=== PATIENT | female | born 1985 | race Caucasian/White ===

== ENCOUNTER → 2019-12-08 | Outpatient (CLI) | payer OTHER ==
[~2019-12-08] MED LIST: ALPR0.25 PO; ALPR0.5T3 PO; AMIT25TA PO; AMIT50TA PO; AMPH1CAP16 PO; FLUC150T PO; GABA800T4 PO; LATU20TA PO; LATU40TA PO; METR-265 PO; MIRT1TAB15 PO; PRAZ1CAP PO; QUET1TAB7 PO
== END ==
LOC: M LABSMTC 10:05
PROVIDERS: ATTEND Family Medicine
DX: Z03.818 Encounter for observation for suspected exposure to other biological agents ruled out (principal); Z11.59 Encounter for screening for other viral diseases
CPT/HCPCS: C9803; U0003

== ENCOUNTER → 2019-12-16 | Outpatient (REF) | payer OTHER ==
[2019-12-16 21:58] LABS: APPEARANCE, URINE HAZY (CLEAR); BACTERIA, URINE AUTO NEGATIVE (NEGATIVE); BILIRUBIN, URINE AUTO NEGATIVE (NEGATIVE); BLOOD, URINE BLOOD NEGATIVE (NEGATIVE); COLOR, URINE YELLOW (YELLOW); GLUCOSE, URINE (UA) AUTO NEGATIVE (NEGATIVE); KETONE, URINE AUTO NEGATIVE (NEGATIVE); LEUKOCYTE ESTERASE, URINE AUTO NEGATIVE (NEGATIVE); MUCUS, URINE SMALL (NEGATIVE); NITRITE, URINE AUTO NEGATIVE (NEGATIVE); PROTEIN, URINE AUTO NEGATIVE (NEGATIVE); RBC, URINE AUTO 1 /HPF (0-3); SPECIFIC GRAVITY URINE AUTO 1.023 (1.002-1.035); SQUAMOUS EPITHELIAL CELL UR AU 8 /HPF (0-6); WBC, URINE AUTO 0 /HPF (0-3)
[2019-12-16 23:27] LABS: CHLAMYDIA DNA AMPLIFICATION NEGATIVE (NEGATIVE); GC DNA AMPLIFICATION NEGATIVE (NEGATIVE)
== END ==
LOC: M LAB REF 21:13
PROVIDERS: ATTEND Physician Assistant
DX: N39.0 Urinary tract infection, site not specified (principal); Z11.3 Encounter for screening for infections with a predominantly sexual mode of transmission

== ENCOUNTER 2019-12-20 12:56 | Emergency (ER) | payer OTHER ==
[~2019-12-20] VITALS: Ht 152.4 cm; Wt 61.9 kg
[2019-12-20] MEDS ORDERED: ALPR0.25 PO (13:20)
[2019-12-20] MEDS ORDERED: QUET1TAB7 PO (13:20)
[2019-12-20] MEDS ORDERED: FLUC150T PO (13:20)
[2019-12-20] MEDS ORDERED: AMPH1CAP16 PO (13:20)
[2019-12-20] MEDS ORDERED: METR-265 PO (13:20)
[2019-12-20] MEDS ORDERED: AMIT50TA PO (13:20)
[2019-12-20 14:00] LABS: BASO # 0.1 10^3/uL (0.0-0.2); BASO % 0.7 % (0.0-1.0); EOS # 0.1 10^3/uL (0.0-0.5); EOS % 0.7 % (0.0-3.0); HEMATOCRIT 45.2 % (36.0-47.0); HEMOGLOBIN 15.1 g/dl (12.0-15.5); LYMPH # 1.7 10^3/uL (1.5-5.0); LYMPH % 23.3 % (24.0-44.0); MEAN CORPUSCULAR HEMOGLOBIN 28.5 pg (27.0-33.0); MEAN CORPUSCULAR HGB CONC 33.4 g/dl (32.0-36.5); MEAN CORPUSCULAR VOLUME 85.3 fl (80.0-96.0); MONO # 0.4 10^3/uL (0.0-0.8); MONO % 5.2 % (0.0-5.0); NEUTROPHILS # 5.1 10^3/uL (1.5-8.5); NEUTROPHILS % 69.7 % (36.0-66.0); PLATELET COUNT, AUTOMATED 373 10^3/uL (150-450); WHITE BLOOD COUNT 7.4 10^3/uL (4.0-10.0)
[2019-12-20] MEDS ORDERED: NS 1,000 ML IV ONE (14:00)
[2019-12-20] MEDS ORDERED: METOCLOPRAMIDE INJ 10MG/2ML VIAL (J2765 PER 1) IV ONE (14:00)
[2019-12-20 14:23] LABS: ALBUMIN 4.2 GM/DL (3.2-5.2); ALT/SGPT 38 U/L (12-78); BILIRUBIN,DIRECT 0.2 MG/DL (0.0-0.2); BILIRUBIN,TOTAL 0.5 MG/DL (0.2-1.0); BLOOD UREA NITROGEN 22 MG/DL (7-18); CARBON DIOXIDE LEVEL 24 MEQ/L (21-32); CHLORIDE LEVEL 108 MEQ/L (98-107); GLOMERULAR FILTRATION RATE > 60.0 (>60); GLUCOSE, FASTING 94 MG/DL (70-100); MAGNESIUM LEVEL 2.1 MG/DL (1.8-2.4); PHOSPHORUS LEVEL 3.7 MG/DL (2.5-4.9); POTASSIUM SERUM 4.1 MEQ/L (3.5-5.1); SODIUM LEVEL 138 MEQ/L (136-145); TOTAL PROTEIN 7.6 GM/DL (6.4-8.2)
[2019-12-20 14:32] VITALS: BP 116/62
--- NOTE | 2019-12-20 21:27 | ECGEPIP ---
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
--- NOTE | 2019-12-20 23:29 | REP ---
CHEST, TWO VIEWS: There is no evidence of acute infiltrate. No pleural effusion is seen. The heart is normal in size. The mediastinal silhouette is unremarkable. The visualized osseous structures are intact. IMPRESSION: No acute pulmonary disease. Electronically Signed by Devon Fowler MD 12/22/2019 09:11 A
--- NOTE | 2019-12-20 23:51 | REP ---
CT BRAIN WITHOUT CONTRAST: REASON: Seizure. PRIORS: None. TECHNIQUE: 4.5 mm contiguous transaxial sections were obtained from the skull base to the cerebral convexities with thin cuts through the posterior fossa without the administration of intravenous contrast. FINDINGS: The ventricles and sulci are consistent with the patient's age. There are no extra-axial fluid collections. There is no mass effect. The deep cerebral white matter is consistent with the patient's age. The orbital and petrous structures, cerebellopontine angles, and posterior fossa are unremarkable. The sella turcica, cavernous, and paracavernous structures are essentially unremarkable. The visualized portions of the paranasal sinuses and mastoid air cells are clear. Images of the skull base show no gross abnormality. IMPRESSION: Essentially unremarkable CT examination of the brain. Electronically Signed by Vj Prescott DO 12/21/2019 09:27 A
== END 2019-12-20 14:45 | disposition left against medical advice (07) ==
LOC: M ED 12:56 → EDBD 12:56 → M ED 14:45
DX: R00.0 Tachycardia, unspecified (principal); I45.19 Other right bundle-branch block; Z53.21 Procedure and treatment not carried out due to patient leaving prior to being seen by health care provider; G40.909 Epilepsy, unspecified, not intractable, without status epilepticus; Z88.1 Allergy status to other antibiotic agents
CPT/HCPCS: 70450; 71046; 80048; 80076; 83735; 84100; 85025; 93005; 94760; 96374; 99284; J2765

== ENCOUNTER 2020-03-24 21:42 | Inpatient (IN) | payer OTHER ==
[~2020-03-24] VITALS: Ht 154.9 cm; Wt 69.6 kg
[~2020-03-24 21:42] MED LIST changes: -ALPR0.5T3 PO; -AMIT25TA PO; -GABA800T4 PO; -LATU20TA PO; -LATU40TA PO; -MIRT1TAB15 PO; -PRAZ1CAP PO
[2020-03-24] MEDS ORDERED: LATU40TA PO (22:02)
[2020-03-24] MEDS ORDERED: MIRT1TAB15 PO (22:02)
[2020-03-24] MEDS ORDERED: ALPR0.5T3 PO (22:02)
[2020-03-24 22:34] LABS: HEMATOCRIT 40.7 % (36.0-47.0); HEMOGLOBIN 13.3 g/dl (12.0-15.5); MEAN CORPUSCULAR HEMOGLOBIN 27.9 pg (27.0-33.0); MEAN CORPUSCULAR HGB CONC 32.7 g/dl (32.0-36.5); MEAN CORPUSCULAR VOLUME 85.5 fl (80.0-96.0); PLATELET COUNT, AUTOMATED 339 10^3/uL (150-450); RED BLOOD COUNT 4.76 10^6/uL (4.00-5.40); WHITE BLOOD COUNT 6.7 10^3/uL (4.0-10.0)
[2020-03-24 22:58] LABS: AMPHETAMINES LEVEL URINE POSITIVE (NEGATIVE); BARBITURATES URINE NEGATIVE (NEGATIVE); BENZODIAZEPINES URINE POSITIVE (NEGATIVE); CANNABINOIDS URINE NEGATIVE (NEGATIVE); COCAINE METABOLITE URINE NEGATIVE (NEGATIVE); METHADONE URINE NEGATIVE (NEGATIVE); OPIATES URINE POSITIVE (NEGATIVE); PHENCYCLIDINE URINE NEGATIVE (NEGATIVE)
[2020-03-24 23:09] LABS: BLOOD UREA NITROGEN 11 MG/DL (7-18); CALCIUM LEVEL 8.4 MG/DL (8.5-10.1); CARBON DIOXIDE LEVEL 27 MEQ/L (21-32); CHLORIDE LEVEL 109 MEQ/L (98-107); GLOMERULAR FILTRATION RATE > 60.0 (>60); GLUCOSE, FASTING 93 MG/DL (70-100); POTASSIUM SERUM 3.8 MEQ/L (3.5-5.1); SODIUM LEVEL 142 MEQ/L (136-145)
[2020-03-24 23:10] LABS: ACETAMINOPHEN LEVEL < 2.0 UG/ML (10.0-30.0); ALBUMIN 3.3 GM/DL (3.2-5.2); ALT/SGPT 54 U/L (12-78); BILIRUBIN,DIRECT < 0.1 MG/DL (0.0-0.2); BILIRUBIN,TOTAL 0.2 MG/DL (0.2-1.0); ETHYL ALCOHOL (ETHANOL) < 0.003 % (0.000-0.010); SALICYLATE LEVEL < 1.7 MG/DL (5.0-30.0); THYROID STIMULATING HORMONE 0.574 uIU/ML (0.358-3.740); TOTAL PROTEIN 6.2 GM/DL (6.4-8.2)
[2020-03-25] MEDS ORDERED: MAALOX 30 ML SUSP *UDC PO PRN (00:45)
[2020-03-25] MEDS ORDERED: MOM 30ML SUSPENSION UDC PO PRN (00:45)
[2020-03-25] MEDS ORDERED: ACETAMINOPHEN TAB 650MG DOSE (2X325MG) PO PRN (00:45)
[2020-03-25] MEDS ORDERED: GABA800T4 PO (01:32)
[2020-03-25] MEDS ORDERED: ALPR0.5T3 PO (01:32)
[2020-03-25] MEDS ORDERED: PRAZ1CAP PO (01:32)
[2020-03-25] MEDS: GABAPENTIN 400 MG CAP PO SCH ×3 (16:00→21:51)
--- NOTE | 2020-03-25 17:05 | HPEPDOC ---
[facility] Medical History & Physical Date of Admission Mar 25, 2020 Date of Service: Mar 25, 2020 History and Physical CHIEF COMPLAINT: Suicide ideation HISTORY OF PRESENT ILLNESS: Patient is a 34-year-old female with seizures who is in the inpatient mental health unit for suicide ideation. Today when I saw her in the inpatient mental health unit, she was distraught and had the blankets over her face. 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 When I talked to her, she told me she had a history of seizures. Last seizure was about 3 weeks ago. She is vague about what happens during the seizure. She tells me that she was put on gabapentin as the other seizure medications have made her feel weird. Otherwise she denied any fever or chills, lightheadedness or dizziness, changes in vision, chest pain, dyspnea, abdominal pain, diarrhea, or dysuria. PAST MEDICAL HISTORY: 1. Seizures 2. Depression PAST SURGICAL HISTORY: 1. Appendectomy. 2. Cystectomy. SOCIAL HISTORY: Tobacco use: Current smoker. One pack per day. ETOH: Denies Illicit drug use: Denies FAMILY HISTORY: Denies any known medical history in parents. Denies that parents had history of heart disease, diabetes, or thyroid problems ALLERGIES: Please see below. REVIEW OF SYSTEMS: A 10 system review was performed and pertinent positives and negatives listed in HPI above HOME MEDICATIONS: Please see below. PHYSICAL EXAMINATION: VITAL SIGNS: Temperature 98.8, pulse 112, respiratory rate 20, blood pressure 135/87, pulse oximetry 100 % on room air. GENERAL: Emotional distress, high blankets over her face. HEENT: Sclera clear. NECK: Supple RESPIRATORY: Lungs clear to auscultation bilaterally, no rales, wheeze or rhonchi. CARDIOVASCULAR: Regular rhythm ABDOMEN: Soft, nontender, no guarding or rebound tenderness. Normal bowel sounds. MUSCLE SKELETAL: Muscle strength 5/5 in all extremities. PSYCHOLOGICAL: Anxious LABORATORY DATA: See below. ASSESSMENT AND PLAN: 1. Suicide ideation Being managed in the inpatient mental health unit 2. Anxiety Being managed in the inpatient mental health unit 3. Seizures Restart gabapentin Would recommend her following with an outpatient neurologist to help manage her seizure medications Thank you for allowing us to be part of the patient's care. We will sign off now. If there is any further questions or concerns, please do not hesitate to contact us Vital Signs Vital Signs Date Time Temp Pulse Resp B/P (MAP) Pulse Ox O2 Delivery O2 Flow Rate FiO2 03/24/20 21:48 98.8 112 20 135/87 100 Room Air Laboratory Data Labs 24H Laboratory Tests 2 03/24/20 22:18: Nucleated Red Blood Cells % (auto) 0.0, Anion Gap 6L, Glomerular Filtration Rate > 60.0, Calcium Level 8.4L, Total Bilirubin 0.2, Direct Bilirubin < 0.1, Aspartate Amino Transf (AST/SGOT) 49H, Alanine Aminotransferase (ALT/SGPT) 54, Alkaline Phosphatase 108, Total Protein 6.2L, Albumin 3.3, Albumin/Globulin Ratio 1.1L, Thyroid Stimulating Hormone (TSH) 0.574, Salicylates Level < 1.7L, Urine Opiates Screen POSITIVEH, Urine Methadone Screen NEGATIVE, Acetaminophen Level < 2.0L, Urine Barbiturates Screen NEGATIVE, Urine Phencyclidine Screen NEGATIVE, Urine Amphetamines Screen POSITIVEH, Urine Benzodiazepines Screen POSITIVEH, Urine Cocaine Metabolite Screen NEGATIVE, Urine Cannabinoids Screen NEGATIVE, Ethyl Alcohol Level < 0.003 CBC/BMP Laboratory Tests 03/24/20 22:18 Home Medications Scheduled Amitriptyline HCl (Amitriptyline HCl) 50 Mg Tablet, 50 MG PO QHS Dextroamphetamine/Amphetamine (Dextroamp-Amphet ER 20 mg Cap) 20 Mg Cap.er.24h, 1 TAB PO BID Gabapentin (Gabapentin) 800 Mg Tablet, 800 MG PO TID Lurasidone Hydrochloride (Latuda) 40 Mg Tablet, 40 MG PO DAILY Mirtazapine (Mirtazapine) 15 Mg Tab.rapdis, 15 MG PO QHS Prazosin Hcl (Prazosin HCl) 1 Mg Capsule, 1 MG PO QHS Quetiapine Fumarate (Quetiapine Fumarate) 25 Mg Tablet, 50 MG PO QHS Scheduled PRN Alprazolam (Alprazolam) 0.5 Mg Tablet, 0.5 MG PO TID PRN for ANXIETY/AGITATION Allergies Coded Allergies: ciprofloxacin (Verified Allergy, Intermediate, 12/20/19) A-FIB/CHADSVASC A-FIB History Current/History of A-Fib/PAF?: No ALICIA ROSALES DO Mar 25, 2020 17:05
[2020-03-25 18:07] VITALS: BP 93/52
[2020-03-25] MEDS: traZODone 50 MG TAB PO PRN (21:51)
[2020-03-26 06:36] VITALS: BP 110/57
[2020-03-26] MEDS ORDERED: INFLUENZA QUADRIVALENT PF VACCINE 0.5ML SYRINGE IM ONE (09:00)
[2020-03-26] MEDS: GABAPENTIN 400 MG CAP PO SCH ×3 (09:40→20:50)
[2020-03-26] MEDS: AMPHETAMINE/DEXTROAMPHETAMINE 5 MG *ER* CAPSULE (ADDERALL XR) PO SCH (15:10)
--- NOTE | 2020-03-26 15:25 | MHIPNPDOC ---
[facility] Progress Note Progress Note DATE OF SERVICE: 03/26/20 HISTORY: Patient is a 34 year old, Single, Employed, Domiciled Female who was brought in by police after her girlfriend had reported that she took an overdose. Patient reports in today's interview that she took two Xanax 0.5 mg because she states she was having trouble sleeping and having difficulty with schoolwork online. She states in today's interview that she made a joke that she "might as well take all of her medications." According to the ED reports she sent a voice message threatening to crash her or overdose on medications. "I didn't mean I would kill myself, I would admit myself if I needed to. I would bag my bags and go to [place] if I needed to be admitted." ED reports that she was possibly losing custody of her children. She had endorsed to the ED depressed, anxiety, racing thoughts, poor concentration, decreased energy, decreased appetite and poor sleep. 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 VITAL SIGNS: See below. NEW TEST RESULTS: CURRENT MEDICATIONS: See below. MENTAL STATUS EXAMINATION: Patient is a 34-year old Single, Employed, Domiciled female, who is awakened for the interview and is mildly drowsy. She appears her stated age. Dressed in hospital scrubs, hygiene and grooming is fair. Her eye contact is minimal, she is disengaged in the interview. She has some slower psychomotor changes. Speech: Is low tone, slow rate and impoverished Language skills are intact Thought processes including: linear and goal oriented Thought content: depression, minimizing suicidal ideation, is not observed with homicidal thoughts, withdrawn, isolative, guarded Abstract reasoning, and computation: . Description of associations: . Description of abnormal or psychotic thoughts: none noted. Judgment: poor to fair at times Insight: poor to fair at times Orientation: alert and oriented to person, place, time and situation Recent and remote memory: intact Attention span and concentration: good Language: expansive Fund of knowledge: average Mood: depressed, reportedly is labile at times Affect: flat DIAGNOSES: 1. Bipolar II Depression 2. Tobacco Use Disorder 3. History of Seizures ASSESSMENT: Patient continued to minimize her suicide attempts, stating "I was joking about taking my medications" She was tearful and impoverished and minimal in her responses. Wants to be discharged, reinforced that due to overdose that she must be held for at least 72 hours, to which she asked when she 72 hours was over and wants to be discharged on the morning of 03/28/20. Reinforced with patient that she will be held up to the 72 hours and not before, she remains very dismissive, guarded and disengaged in treatment. She would only sign LITO for Dr. Hinton to discuss only mediations and not anything about why she is hospitalized. Spoke to Dr. Hinton about titration of Amitriptyline and Seroquel. Case discussed with Dr. Agosto. MANAGEMENT PLAN: Patient will be continued on all home medications, with reduction of Amitriptyline and Seroquel. Due to patient's impulsivity and suicidal risk I am titrating patient off Amitriptyline and Seroquel due to multiple medications with sedative side effects. TIME SPENT: 20 minutes. Vital Signs Vital Signs Date Time Temp Pulse Resp B/P (MAP) Pulse Ox O2 Delivery O2 Flow Rate FiO2 03/26/20 06:36 98.0 73 14 110/57 (74) 98 Room Air Current Medications Current Medications Medications (Trade) Dose Ordered Sig/Katrin Route PRN Reason Start Time Stop Time Status Last Admin Dose Admin Acetaminophen (Tylenol Tab) 650 mg Q6HP PRN PO HEADACHE or DISCOMFORT 03/25/20 00:45 Al Hydrox/Mg Hydrox/Simethicone (Mylanta) 30 ml Q4HP PRN PO HEARTBURN/INDIGESTION 03/25/20 00:45 Gabapentin (Neurontin) 800 mg TID PO 03/25/20 16:00 03/26/20 09:40 Home Med (Med Rec Complete!) ASDIRECTED XX 03/25/20 01:45 03/25/20 01:34 DC Magnesium Hydroxide (Milk Of Magnesia) 30 ml DAILYPRN PRN PO CONSTIPATION 03/25/20 00:45 Trazodone HCl (Desyrel) 50 mg QHSP PRN PO INSOMNIA 03/25/20 00:45 03/25/20 21:51 Allergies Coded Allergies: ciprofloxacin (Verified Allergy, Intermediate, 12/20/19) REEBCA LITTLEJOHN SUSTAINABILITY PURCHASING AGENT Mar 26, 2020 13:47
[2020-03-26 16:06] VITALS: BP 100/58
[2020-03-26] MEDS: traZODone 50 MG TAB PO PRN (20:50)
[2020-03-26] MEDS: QUEtiapine FUMARATE 25 MG TAB PO SCH (20:50)
[2020-03-26] MEDS: MIRTAZAPINE 15 MG TAB PO SCH (20:50)
[2020-03-26] MEDS: AMITRIPTYLINE 25 MG TAB PO SCH (20:50)
[2020-03-27 06:30] VITALS: BP 120/62
[2020-03-27] MEDS ORDERED: LURASIDONE HCL 40 MG TAB (LATUDA) PO SCH (08:00)
[2020-03-27] MEDS: GABAPENTIN 400 MG CAP PO SCH ×3 (08:41→21:20)
[2020-03-27] MEDS: AMPHETAMINE/DEXTROAMPHETAMINE 5 MG *ER* CAPSULE (ADDERALL XR) PO SCH ×2 (08:41→14:08)
--- NOTE | 2020-03-27 14:12 | CR.PDOC ---
General Date of Consultation: Mar 27, 2020 Consultation Reason for consultation: possible glass/foreign object in foot Subjective: Patient seen and examined in examination room. Patient voiced no complaints. Notified by staff regarding earlier complaints of glass/foreign object in foot, which occurred prior to admission to [facility]. Objective: General: NAD, sitting comfortably in chair HEENT: NC/AT, EOMI Lungs: CTA B/L Heart: +S1S2, RRR Abd: soft, NT, +BS Ext: no edema A/P: 34 yo female admitted to [facility] for suicidal ideation, medicine consulted for further evaluation of possible glass foreign object in foot. #psych/SI - as per primary team - psychiatry #possible foreign object in foot - XR pending Vital Signs/I&O Vital Signs Date Time Temp Pulse Resp B/P (MAP) Pulse Ox O2 Delivery O2 Flow Rate FiO2 03/27/20 06:30 97.9 77 16 120/62 (81) 03/26/20 06:36 98 Room Air Allergies Coded Allergies: ciprofloxacin (Verified Allergy, Intermediate, 12/20/19) Home Medications Scheduled Amitriptyline HCl (Amitriptyline HCl) 50 Mg Tablet, 50 MG PO QHS, (Reported) Dextroamphetamine/Amphetamine (Dextroamp-Amphet ER 20 mg Cap) 20 Mg Cap.er.24h, 1 TAB PO BID, (Reported) Gabapentin (Gabapentin) 800 Mg Tablet, 800 MG PO TID, (Reported) Lurasidone Hydrochloride (Latuda) 40 Mg Tablet, 40 MG PO DAILY, (Reported) Mirtazapine (Mirtazapine) 15 Mg Tab.rapdis, 15 MG PO QHS, (Reported) Prazosin Hcl (Prazosin HCl) 1 Mg Capsule, 1 MG PO QHS, (Reported) Quetiapine Fumarate (Quetiapine Fumarate) 25 Mg Tablet, 50 MG PO QHS, (Reported) Scheduled PRN Alprazolam (Alprazolam) 0.5 Mg Tablet, 0.5 MG PO TID PRN for ANXIETY/AGITATION, (Reported) SHANNON COWAN MD Mar 27, 2020 14:12
--- NOTE | 2020-03-27 14:20 | MHHPEPDOC ---
General Date Of Admission: Mar 25, 2020 Legal Status: 9.39 Chief Complaint "I wanted to take a nap and so I took 2 Xanax so I could work on school." History of Present Illness HISTORY OF THE PRESENT ILLNESS: Patient is a 34 year old, Single, Employed, Domiciled Female who was brought in by police after her girlfriend had reported that she took an overdose. Patient reports in today's interview that she took two Xanax 0.5 mg because she states she was having trouble sleeping and having difficulty with schoolwork online. She states in today's interview that she made a joke that she "might as well take all of her medications." According to the ED reports she sent a voice message threatening to crash her or overdose on medications. "I didn't mean I would kill myself, I would admit myself if I needed to. I would bag my bags and go to [place] if I needed to be admitted." ED reports that she was possibly losing custody of her children. She had endorsed to the ED depressed, anxiety, racing thoughts, poor concent ration, decreased energy, decreased appetite and poor sleep. 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 It is reported that she and her girlfriend had a breakup. According to collateral patient's ex-girlfriend received a voice message with the patient endorsing that she was going to kill herself by overdosing on her medications. The Police were able to listen to the recording. According to the ED report, patient reported that she took Xanax and all of her sleeping medications (Seroquel, Remeron, and Prazosin) in order to sleep. Patient has numerous stressors 1) recent breakup with girlfriend, 2) possibility of losing custody of children, 3) new job at 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 Psychiatric Review of Systems Depression (2 or more weeks): depressed mood, anhedonia, insomnia/hypersomnia (poor sleep), feelings of excess/guilt, feelings of worthlesness, difficulty concentrating, suicidal thoughts, other (relationship problems) Areli (4 or more days of): denies Psychosis: denies PTSD: denies Anxiety: gen/non-specific anxiety, situational anxiety, stressor related anxiety Anxiety/ 6 months or more of: restlessness, keyed up, difficulty concentrating, irritability, personality cluster A,BC Past Psychiatric History Previous Psychiatric Diagnosis: Bipolar I Disorder, Depression, Anxiety, ADHD, Borderline Personality Disorder Previous Psychiatric Admissions: Previous hospitalization at [facility], [place], [place] Suicide Attempts: Age [age] years old Overdose. One this occasion she overdosed on Xanax and sleeping pills Psychiatric Follow-up: Dr. Hinton Psychiatric medications: Xanax, Seroquel, Remeron, Adderall, Prozosin, Amitriptyline, Latuda . Per ED reports: ADHD, alcohol use/abuse, anxiety, depression, self-harm, poor impulse control, self-harm, sleep disturbance, suicidal ideation/suicide attempt, trauma history Past Medical History Medical Problems PAST MEDICAL HISTORY: 1. Seizures 2. Depression PAST SURGICAL HISTORY: 1. Appendectomy. 2. Cystectomy. ALLERGIES: Ciprofloxacin Head Injury: No Seizures: Yes Hospitalizations: Yes Surgeries: Yes Family Medical/Psychiatric HX Medical Problems FAMILY HISTORY: Denies any known medical history in parents. Denies that parents had history of heart disease, diabetes, or thyroid problems Sister with depression Psychiatric Disorders: No Addiction: No Suicide Attemps/Completions: No Addiction History nicotine (one pack a day), alcohol, cocaine (last use 18 years old), ecstasy (last use at 20 yo), amphetamines (Rx for ADHD), opioids (6 years ago), heroin (6 years ago) Social History Childhood: born in [facility], to both parents, 4 younger sisters. Patient is the oldest. Both parents alive but Abuse/Trauma: yes Current Living Situation: Living with twin 12 years old son and daughter. Currently the daughter/linette are with their father. 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 Has court tomorrow. Marital: Single, and Mental Status Examination General Appearance: disheveled, appears stated age, hospital scubs/clothing Build: average Demeanor: mistrustful, withdrawn, guarded Eye Contact: avoidant Activity: anxious Behavior: withdrawn Speech: slow, impoverished Mood: depressed, irritable Mood "I was not depressed, I was joking" As she is crying after being told she will be hospitalized for 72 hours or longer Affect: flat, anxious Thought Process: logical/linear Thought Content (Delusions): none reported, denies SI, HI, AVH Thought Content (Other): guarded Thought Content (Aggressive): none reported Perception (Hallucinations): none reported Perception (Other): none reported Cognition (Impairment of): none reported Cognition(Intelligence Est.): average Oriented: Awake, Alert, Oriented times three Insight: poor Judgment: Poor Psychosis: Denies Diagnoses Bipolar I, Disorder, Recurrent, Depressed Tobacco Use Disorder ADHD Anxiety Disorder Borderline Personality Disorder A-FIB/CHADSVASC A-FIB History Current/History of A-Fib/PAF?: No Current PO Anticoag Therapy: No Assessment Patient is withdrawn, guarded and minimizing her suicide gesture/attempt. She states "I was joking and I only took 2 Xanax" she appears depressed, although reporting mild depression. States that she is worried about her job and nursing school. we will restart patient on all her home medications. Given that Amitriptyline can be very dangerous for someone this impulsive I am going to titrate her off this medication. Seroquel is also being titrated down. I spoke with Dr. Hinton about this discontinuation. Patient will be held for the full 72 hours and/or longer. She minimizes all of her actions and states she does not need to be hospitalized. Due to her level of impulsivity and recent added stressors we will observe and determine her discharge at the end of the 72 hours. Initial Treatment Plan 1. Patient was admitted on a [9.39] status. 2. Complete history was obtained. 3. With patients permission, family will be contacted and database will be expanded. 4. Patients medication regimen will be reviewed and changed accordingly. 5. Patient will be provided with protected environment. 6. Patient will be treated with individual, group, and milieu therapies. 7. Patient will receive supportive psych-education. 8. Discharge planning will commence immediately. 9. Outpatient follow-up treatment will be strongly recommended. 10. The initial treatment plan will focus initially on: * Depression. * Risk for suicide. ESTIMATED LENGTH OF STAY: [3-5 DAYS. TIME SPENT COUNSELING AND COORDINATING INITIAL CARE: 45 minutes. Vital Signs Vital Signs Date Time Temp Pulse Resp B/P (MAP) Pulse Ox O2 Delivery O2 Flow Rate FiO2 03/27/20 06:30 97.9 77 16 120/62 (81) 03/26/20 06:36 98 Room Air Medications Scheduled Amitriptyline HCl (Amitriptyline HCl) 50 Mg Tablet, 50 MG PO QHS, (Reported) Dextroamphetamine/Amphetamine (Dextroamp-Amphet ER 20 mg Cap) 20 Mg Cap.er.24h, 1 TAB PO BID, (Reported) Gabapentin (Gabapentin) 800 Mg Tablet, 800 MG PO TID, (Reported) Lurasidone Hydrochloride (Latuda) 40 Mg Tablet, 40 MG PO DAILY, (Reported) Mirtazapine (Mirtazapine) 15 Mg Tab.rapdis, 15 MG PO QHS, (Reported) Prazosin Hcl (Prazosin HCl) 1 Mg Capsule, 1 MG PO QHS, (Reported) Quetiapine Fumarate (Quetiapine Fumarate) 25 Mg Tablet, 50 MG PO QHS, (Reported) Scheduled PRN Alprazolam (Alprazolam) 0.5 Mg Tablet, 0.5 MG PO TID PRN for ANXIETY/AGITATION, (Reported) Allergies Coded Allergies: ciprofloxacin (Verified Allergy, Intermediate, 12/20/19) REBECA LITTLEJOHN NP Mar 27, 2020 13:39
[2020-03-27 16:41] VITALS: BP 134/82
--- NOTE | 2020-03-27 16:48 | MHIPNPDOC ---
[facility] Progress Note Progress Note DATE OF SERVICE: 03/27/20 HISTORY: Patient is a 34 year old, Single, Employed, Domiciled Female who was brought in by police after her girlfriend had reported that she took an overdose. Patient reports in today's interview that she took two Xanax 0.5 mg because she states she was having trouble sleeping and having difficulty with schoolwork online. She states in today's interview that she made a joke that she "might as well take all of her medications." According to the ED reports she sent a voice message threatening to crash her or overdose on medications. "I didn't mean I would kill myself, I would admit myself if I needed to. I would bag my bags and go to [place] if I needed to be admitted." ED reports that she was possibly losing custody of her children. She had endorsed to the ED depressed, anxiety, racing thoughts, poor concentration, decreased energy, decreased appetite and poor sleep. 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 VITAL SIGNS: See below. NEW TEST RESULTS: CURRENT MEDICATIONS: See below. MENTAL STATUS EXAMINATION: Patient is a 34-year old Single, Employed, Domiciled female, who is calm and cooperative in the interview. She denies SI. HI, depression and anxiety. States that she is upset with what happened to place her in the hospital. She appears her stated age, hygiene and grooming are fair. Eye contact is good. Speech: Is normal rate, tone and volume Language skills are intact Thought processes including: linear and goal oriented Thought content: mildly depressed, denies that she took an overdose. And reports that she is very upset with her friend because she states she has always self presented to the hospital when she has needed help or an admission to the hospital Abstract reasoning, and computation: fair Description of associations: none Description of abnormal or psychotic thoughts: none noted. Judgment: good Insight: good Orientation: alert and oriented to person, place, time and situation Recent and remote memory: intact Attention span and concentration: good Language: expansive Fund of knowledge: average Mood: mildly depressed, Affect: reactive DIAGNOSES: 1. Bipolar II Depression 2. Tobacco Use Disorder 3. History of Seizures ASSESSMENT: Patient continued to report that she did not take an overdose of her medications. She is seen out in the milieu and appears to be in brighter mood and affect. She smiled on approach and reports that she spent two days in the room because she had to process what had happened. She attended groups and during the interview, she appeared to be genuine and engaged. Patient reports concern about her children's whereabouts because is only allowed supervised visits due to his continued drug use. 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 She articulates well, describing how she decided to move her children to [place] in order to create a better life for herself. She states that she is happy with her current work schedule, feels like she is in a good place but admits that she at times sabotages herself when she is in conflict. MANAGEMENT PLAN: Patient will be continued on all home medications, with reduction of Amitriptyline and Seroquel. Latuda increased to 60 mg per patient's request, stating that she feels that her mood is still unstable. At this time, I feel that patient is stable and that she can be discharged tomorrow after I meet with her. TIME SPENT: 25 minutes. Vital Signs Vital Signs Date Time Temp Pulse Resp B/P (MAP) Pulse Ox O2 Delivery O2 Flow Rate FiO2 03/27/20 06:30 97.9 77 16 120/62 (81) 03/26/20 06:36 98 Room Air Current Medications Current Medications Medications (Trade) Dose Ordered Sig/Katrin Route PRN Reason Start Time Stop Time Status Last Admin Dose Admin Acetaminophen (Tylenol Tab) 650 mg Q6HP PRN PO HEADACHE or DISCOMFORT 03/25/20 00:45 Al Hydrox/Mg Hydrox/Simethicone (Mylanta) 30 ml Q4HP PRN PO HEARTBURN/INDIGESTION 03/25/20 00:45 Alprazolam (Xanax) 0.5 mg TID PRN PO Anxiety 03/26/20 14:00 Amitriptyline HCl (Elavil) 25 mg QHS PO 03/26/20 21:00 03/26/20 20:50 Amphetamine/ Dextroamphetamine (Adderall Xr) 20 mg BID@0800,1400 PO 03/26/20 14:00 10/13/20 14:08 Gabapentin (Neurontin) 800 mg TID PO 03/25/20 16:00 03/27/20 08:41 Home Med (Med Rec Complete!) ASDIRECTED XX 03/25/20 01:45 03/25/20 01:34 DC Lurasidone HCl (Latuda) 40 mg DAILY@08 PO 03/27/20 08:00 03/27/20 08:41 Magnesium Hydroxide (Milk Of Magnesia) 30 ml DAILYPRN PRN PO CONSTIPATION 03/25/20 00:45 Mirtazapine (Remeron) 15 mg QPM PO 03/26/20 21:00 03/26/20 20:50 Quetiapine Fumarate (SEROquel) 25 mg QHS PO 03/26/20 21:00 03/26/20 20:50 Trazodone HCl (Desyrel) 50 mg QHSP PRN PO INSOMNIA 03/25/20 00:45 03/26/20 20:50 Allergies Coded Allergies: ciprofloxacin (Verified Allergy, Intermediate, 12/20/19) REBECA LITTLEJOHN NP Mar 27, 2020 16:19
[2020-03-27] MEDS: AMITRIPTYLINE 25 MG TAB PO SCH (21:20)
[2020-03-27] MEDS: ALPRAZolam 0.5 MG TAB PO PRN (21:20)
[2020-03-27] MEDS: QUEtiapine FUMARATE 25 MG TAB PO SCH (21:20)
[2020-03-27] MEDS: MIRTAZAPINE 15 MG TAB PO SCH (21:20)
[2020-03-27] MEDS: traZODone 50 MG TAB PO PRN (22:48)
[2020-03-28 06:32] VITALS: BP 138/88
[2020-03-28] MEDS: AMPHETAMINE/DEXTROAMPHETAMINE 5 MG *ER* CAPSULE (ADDERALL XR) PO SCH (07:53)
[2020-03-28] MEDS: GABAPENTIN 400 MG CAP PO SCH (07:54)
[2020-03-28] MEDS ORDERED: LURASIDONE 20 MG TAB (LATUDA) PO SCH (08:00)
[2020-03-28] MEDS: ALPRAZolam 0.5 MG TAB PO PRN (09:44)
[2020-03-28] MEDS ORDERED: AMIT25TA PO (10:35)
[2020-03-28] MEDS ORDERED: LATU20TA PO (10:35)
--- NOTE | 2020-03-28 15:57 | MHDSPDOC ---
[facility] Discharge Summary Discharge Summary DATE OF ADMISSION: Mar 25, 2020 at 00:43 DATE OF DISCHARGE: Mar 28, 2020 at 12:25 DISCHARGE DIAGNOSES: 1. Bipolar II Depression 2. Tobacco Use Disorder 3. History of Seizures REASON FOR ADMISSION: Patient is a 34 year old, Single, Employed, Domiciled Female who was brought in by police after her girlfriend had reported that she took an overdose. Patient reports in today's interview that she took two Xanax 0.5 mg because she states she was having trouble sleeping and having difficulty with schoolwork online. She states in today's interview that she made a joke that she "might as well take all of her medications." According to the ED reports she sent a voice message threatening to crash her or overdose on medications. "I didn't mean I would kill myself, I would admit myself if I needed to. I would bag my bags and go to [place] if I needed to be admitted." ED reports that she was possibly losing custody of her children. She had endorsed to the ED depressed, anxiety, racing thoughts, poor concentration, decreased energy, decreased appetite and poor sleep. 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 CONSULTANTS INVOLVED: See Medical Consultation by Medical Providers TREATMENT AND PROGRESS ON THE UNIT : TREATMENT AND PROGRESS ON THE UNIT : Patient was admitted to the [facility] on a 9.39 legal status he was afforded the following treatment modalities: 1) Individual Therapy 2) Group Therapy 3) Medication Management 4) Milieu Therapy 5) Safe Environment HOSPITAL COURSE: Patient was restarted on all her home medications, with reduction of Amitriptyline and Seroquel. Latuda increased to 60 mg per patient's request, stating that she feels that her mood is still unstable. At this time, I feel that patient is stable for discharge. She was initially very withdrawn and guarded and stayed close to her room. She was at times very standoffish. By her 3rd day she was calm and cooperative and pleasant on the unit, social with peers and had a bright mood and affect DISCHARGE ASSESSMENT: Patient is doing well and is stable for discharge. She reports motivation to return to school and is future oriented, she denies suicidal ideation and reported no depression. MENTAL STATUS EXAMINATION ON DISCHARGE: Patient is a 34-year old Single, Employed, Domiciled female, who is calm and cooperative in the interview. She denies SI. HI, depression and anxiety. States that she is upset with what happened to place her in the hospital. She appears her stated age, hygiene and grooming are fair. Eye contact is good. Speech: Is normal rate, tone and volume Language skills are intact Thought processes including: linear and goal oriented Thought content: mildly depressed, denies that she took an overdose. And reports that she is very upset with her friend because she states she has always self presented to the hospital when she has needed help or an admission to the hospital Abstract reasoning, and computation: fair Description of associations: none Description of abnormal or psychotic thoughts: none noted. Judgment: good Insight: good Orientation: alert and oriented to person, place, time and situation Recent and remote memory: intact Attention span and concentration: good Language: expansive Fund of knowledge: average Mood: bright, euthymic Affect: reactive MEDICATIONS ON DISCHARGE: see Medication Reconciliation PLAN/FOLLOWUP ARRANGEMENTS: Following up with Lupe and Dr. Hinton The amount of time spent in the coordination of care for this patient was approximately 35 minutes. Vital Signs/I&Os Vital Signs Date Time Temp Pulse Resp B/P (MAP) Pulse Ox O2 Delivery O2 Flow Rate FiO2 03/28/20 06:32 97.6 107 16 138/88 (105) 03/26/20 06:36 98 Room Air Medications Scheduled Amitriptyline HCl (Amitriptyline HCl) 25 Mg Tablet, 25 MG PO QPM for depression, #2 Take 25 mg every other night Dextroamphetamine/Amphetamine (Dextroamp-Amphet ER 20 mg Cap) 20 Mg Cap.er.24h, 1 TAB PO BID, (Reported) Gabapentin (Gabapentin) 800 Mg Tablet, 800 MG PO TID, (Reported) Lurasidone Hydrochloride (Latuda) 20 Mg Tablet, 1 TAB PO DAILY for Mood Stabilizer, #7 Take Lurasidone 20 mg with 40 mg tablet for total of 60 mg Mirtazapine (Mirtazapine) 15 Mg Tab.rapdis, 15 MG PO QHS, (Reported) Quetiapine Fumarate (Quetiapine Fumarate) 25 Mg Tablet, 50 MG PO QHS, (Reported) Scheduled PRN Alprazolam (Alprazolam) 0.5 Mg Tablet, 0.5 MG PO TID PRN for ANXIETY/AGITATION, (Reported) Allergies Coded Allergies: ciprofloxacin (Verified Allergy, Intermediate, 12/20/19) REBECA LITTLEJOHN NP Mar 28, 2020 15:57
--- NOTE | 2020-03-30 13:37 | REP ---
RIGHT FOOT SERIES CLINICAL: Foreign body. TECHNIQUE: PA and lateral. FINDINGS: Osseous structures, joint spaces, and surrounding soft tissues appear normal. No acute fracture or dislocation. No subcutaneous emphysema. No obvious foreign body. IMPRESSION: Normal examination. No obvious foreign body. MTDD
== END 2020-03-28 12:25 | disposition home or self-care (01) | DRG 753 ==
LOC: M ED 21:42 → M ED INP 03-25 00:43 → M PSY 03-25 02:46
PROVIDERS: ADMIT Psychiatry & Neurology Psychiatry; ATTEND Psychiatry & Neurology Psychiatry
DX: F31.81 Bipolar II disorder (principal); R56.9 Unspecified convulsions; R45.851 Suicidal ideations; F17.200 Nicotine dependence, unspecified, uncomplicated; Z79.899 Other long term (current) drug therapy; Z88.8 Allergy status to other drugs, medicaments and biological substances; F41.9 Anxiety disorder, unspecified

== ENCOUNTER → 2020-04-19 | Outpatient (REF) | payer OTHER ==
[~2020-04-19] MED LIST changes: +ALPR0.5T3 PO; +AMIT25TA PO; +GABA800T4 PO; +LATU20TA PO; +LATU40TA PO; +MIRT1TAB15 PO; +PRAZ1CAP PO
== END ==
LOC: M LAB REF 16:28
PROVIDERS: ATTEND Physician Assistant
DX: R30.9 Painful micturition, unspecified (principal)

== ENCOUNTER 2020-06-10 12:30 | Emergency (ER) | payer OTHER ==
[~2020-06-10] VITALS: Ht 157.5 cm; Wt 66.0 kg
[~2020-06-10 12:30] MED LIST changes: -TRAM1CAP15 PO
[2020-06-10 12:31] VITALS: BP 127/64
[2020-06-10] MEDS ORDERED: TRAM1CAP15 PO (12:39)
--- NOTE | 2020-06-10 13:42 | REP ---
INDICATION: fall COMPARISON: 12/20/2019 TECHNIQUE: Axial noncontrast images from the skull base to the vertex with coronal reformations. This CT examination was performed using the following dose reduction techniques: Automated exposure control, adjustment of mA and/or kv according to the patient's size, and use of iterative reconstruction technique. FINDINGS: The ventricles, sulci, and cisterns are normal in position and appearance. Fowler-white differentiation is maintained. No acute intracranial hemorrhage, mass/mass effect, pathology or trauma/injury. No evidence for acute infarction. No extra-axial fluid collection. Calvarium is intact. Paranasal sinuses and mastoid air cells are clear. IMPRESSION: Normal noncontrast head CT. No evidence for acute intracranial pathology or trauma/injury. <Electronically signed by Jesus Robins > 06/10/20 [id number]
--- NOTE | 2020-06-10 13:46 | REP ---
INDICATION: fall COMPARISON: None. TECHNIQUE: AP, lateral, bilateral oblique views left. FINDINGS: The carpal bones, surrounding osseous structures, soft tissues, and joint spaces are normal. There is no evidence for acute fracture or dislocation. No subcutaneous emphysema or radiodense foreign body. IMPRESSION: Normal wrist series. No acute fracture or dislocation. <Electronically signed by Jesus Robins > 06/10/20 [id number]
--- NOTE | 2020-06-10 13:54 | REP ---
INDICATION: fall. COMPARISON: None. TECHNIQUE: Axial noncontrast images of the thoracic spine with coronal and sagittal reformations. This CT examination was performed using the following dose reduction techniques: Automated exposure control, adjustment of mA and/or kv according to the patient's size, and use of iterative reconstruction technique. FINDINGS: Thoracic vertebral bodies are intact and without acute fracture/compression injury or subluxation. Alignment and kyphosis maintained. Disc spaces are normal. Spinal canal is patent and normal. Posterior elements and spinous processes are intact. Paravertebral soft tissues are normal. IMPRESSION: Normal thoracic spine CT. No evidence for acute trauma/injury. <Electronically signed by Jesus Robins > 06/10/20 [id number]
--- NOTE | 2020-06-10 13:55 | REP ---
INDICATION: fall. COMPARISON: None. TECHNIQUE: Axial noncontrast images of the lumbosacral spine from mid T12 through mid sacrum with coronal and sagittal reformations. This CT examination was performed using the following dose reduction techniques: Automated exposure control, adjustment of mA and/or kv according to the patient's size, and use of iterative reconstruction technique. FINDINGS: Alignment and lordosis maintained. Vertebral bodies are intact. Posterior elements and spinous processes are intact. There is no evidence for acute fracture/compression injury or subluxation. The spinal canal is patent. The paravertebral soft tissues are normal. IMPRESSION: Normal lumbosacral spine CT. No evidence for acute fracture/compression injury or subluxation. <Electronically signed by Jesus Robins > 06/10/20 [id number]
--- NOTE | 2020-06-10 13:58 | REP ---
INDICATION: fall COMPARISON: None TECHNIQUE: Axial noncontrast images from the thoracic inlet to the upper abdomen with coronal and sagittal reformations. This CT examination was performed using the following dose reduction techniques: Automated exposure control, adjustment of mA and/or kv according to the patient's size, and use of iterative reconstruction technique. FINDINGS: Bilateral lung marino are well aerated and clear. No consolidation/contusion, pleural effusion, or pneumothorax. Tracheobronchial tree is patent. Mediastinum demonstrates normal thoracic aorta, pulmonary vasculature, and heart/pericardium. No mediastinal trauma or pathology appreciated. No axillary, hilar, or mediastinal adenopathy. Surrounding musculoskeletal structures are intact. IMPRESSION: Normal noncontrast CT of the chest. No evidence for acute trauma/injury. No evidence for acute mediastinal or pleuroparenchymal process. <Electronically signed by Jesus Robins > 06/10/20 [id number]
--- NOTE | 2020-06-10 14:32 | REP ---
INDICATION: fall COMPARISON: None. TECHNIQUE: Axial noncontrast images from the skull base to the thoracic inlet with coronal and sagittal re-formations This CT examination was performed using the following dose reduction techniques: Automated exposure control, adjustment of mA and/or kv according to the patient's size, and use of iterative reconstruction technique. FINDINGS: Normal alignment and lordosis is maintained. Cervical vertebral bodies including transverse processes and spinous processes are intact and there is no evidence for acute fracture / compression injury or subluxation. Spinal canal is patent. Posterior elements are intact. Paravertebral soft tissues are normal. IMPRESSION: Normal noncontrast cervical spine CT. No evidence for acute pathology or trauma/injury. <Electronically signed by Jesus Robins > 06/10/20 [id number]
== END 2020-06-10 15:05 | disposition home or self-care (01) ==
LOC: M ED 12:30
DX: T14.8XXA Other injury of unspecified body region, initial encounter (principal); W01.0XXA Fall on same level from slipping, tripping and stumbling without subsequent striking against object, initial encounter; Y92.9 Unspecified place or not applicable; Y93.9 Activity, unspecified; Y99.9 Unspecified external cause status; F44.5 Conversion disorder with seizures or convulsions; E07.9 Disorder of thyroid, unspecified; Z79.899 Other long term (current) drug therapy; Z88.1 Allergy status to other antibiotic agents

== ENCOUNTER → 2020-06-10 | Outpatient (REF) | payer OTHER ==
[~2020-06-10] MED LIST changes: +TRAM1CAP15 PO
[2020-06-10 17:41] LABS: APPEARANCE, URINE HAZY (CLEAR); BACTERIA, URINE AUTO NEGATIVE (NEGATIVE); BILIRUBIN, URINE AUTO NEGATIVE (NEGATIVE); BLOOD, URINE BLOOD NEGATIVE (NEGATIVE); CALCIUM OXALATE CRYSTALS SMALL; COLOR, URINE YELLOW (YELLOW); GLUCOSE, URINE (UA) AUTO NEGATIVE (NEGATIVE); KETONE, URINE AUTO NEGATIVE (NEGATIVE); LEUKOCYTE ESTERASE, URINE AUTO NEGATIVE (NEGATIVE); MUCUS, URINE SMALL (NEGATIVE); NITRITE, URINE AUTO NEGATIVE (NEGATIVE); PROTEIN, URINE AUTO NEGATIVE (NEGATIVE); RBC, URINE AUTO 0 /HPF (0-3); SPECIFIC GRAVITY URINE AUTO 1.027 (1.002-1.035); SQUAMOUS EPITHELIAL CELL UR AU 13 /HPF (0-6); UROBILINOGEN, URINE AUTO 0.2 mg/dL (0.0-2.0); WBC, URINE AUTO 1 /HPF (0-3)
[2020-06-10 20:03] LABS: CHLAMYDIA DNA AMPLIFICATION NEGATIVE (NEGATIVE); GC DNA AMPLIFICATION NEGATIVE (NEGATIVE)
== END ==
LOC: M LAB REF 17:17
PROVIDERS: ATTEND Physician Assistant Medical
DX: N39.0 Urinary tract infection, site not specified (principal)